=== PATIENT | female | born 1970 | race Hispanic/Latino ===

== ENCOUNTER 2023-06-24 06:10 | Day surgery (SDC) | payer BC ==
[2023-06-18 10:34] VITALS: BP 94/57; PULSE 64; RESP 16
[~2023-06-24] VITALS: Ht 170.2 cm; Wt 75.7 kg
[2023-06-24] VITALS (16 sets, daily range): BP systolic 96–116; BP diastolic 33–65; PULSE 50–79; RESP 12–18
[2023-06-24] MEDS ORDERED: LACTATED RINGERS 1000ML 1,000 ML IV ONE (06:43)
[2023-06-24] MEDS ORDERED: MIDAZOLAM HCL 1 MG/ML 2ML VIAL ONE (07:07)
[2023-06-24] MEDS ORDERED: FENTANYL CITRATE PF 50 MCG/1 ML 2ML VIAL ONE ×3 (07:07→09:25)
[2023-06-24] MEDS: CEFAZOLIN SODIUM 2 GM VIAL ONE ×2 (07:09→08:40)
[2023-06-24] MEDS ORDERED: PROPOFOL 10 MG/ML 20ML VIAL IV ONE (07:17)
[2023-06-24] MEDS ORDERED: LIDOCAINE PF 100MG/5ML (2%) SYRINGE 5ML ONE (07:17)
[2023-06-24] MEDS ORDERED: ROCURONIUM 10MG/1ML SYR 10 MG/ML ML ONE (07:17)
[2023-06-24] MEDS ORDERED: ONDANSETRON 4MG INJ ONE (07:21)
[2023-06-24] MEDS ORDERED: ROPIVACAINE 0.5% 5MG/ML 30ML IJ ONE (07:24)
[2023-06-24] MEDS ORDERED: IOHEXOL-350 50ML VIAL IV ONE (07:54)
[2023-06-24] MEDS ORDERED: DEXAMETHASONE SOD PHOSPHATE 4 MG/ML 1ML VIAL ONE (09:05)
[2023-06-24] MEDS ORDERED: GLYCOPYRROLATE 1 MG/5 ML SYRINGE ONE (09:20)
[2023-06-24] MEDS ORDERED: NEOSTIGMINE 5MG/5ML SYR IV ONE (09:20)
[2023-06-24] MEDS ORDERED: KETOROLAC 30MG VIAL (30MG/ML) ONE (09:22)
[2023-06-24] MEDS ORDERED: TRAM50TA4 PO (09:30)
[2023-06-24] MEDS ORDERED: DOCU-116 PO (09:30)
[2023-06-24] MEDS ORDERED: GABA-529 PO (09:30)
[2023-06-24] MEDS ORDERED: METH-662 PO (09:30)
[2023-06-24] MEDS ORDERED: MEPERIDINE-PF 25 MG/ML SYG ONE (09:50)
[2023-06-24] MEDS ORDERED: DiphenhydrAMINE HCL 50 MG/ML VIAL ONE (10:58)
[2023-06-24] MEDS ORDERED: BUDESONIDE 0.5 MG/2 ML INH IH ONE (10:59)
[2023-06-24] MEDS ORDERED: BUDESONIDE 0.5 MG/2 ML INH IH STA (11:01)
[2023-06-24] MEDS ORDERED: FAMOTIDINE 20MG VIAL IV ONE (11:04)
== END 2023-06-24 11:20 | disposition home or self-care (01) ==
LOC: DAH 06:10
PROVIDERS: ATTEND Surgery
DX: K80.10 Calculus of gallbladder with chronic cholecystitis without obstruction (principal); Z82.49 Family history of ischemic heart disease and other diseases of the circulatory system; Z91.041 Radiographic dye allergy status; Z90.710 Acquired absence of both cervix and uterus; Z98.890 Other specified postprocedural states
CPT/HCPCS: 47563; 88304; 74300; A6260; J1100; A4663; J7030; C1758; J7120; J1200; J3490 ×2; J3010 ×3; J2710; J2001; J2250; J2704; J2405; J1885; J2175; J2795; Q9967; J0690; A4649 ×2; A4930 ×3; A4215; A4223; A4222; A4221; A4600